=== PATIENT | female | born 1985 | race Caucasian/White ===

== ENCOUNTER → 2016-06-18 | Outpatient (CLI) | payer BC ==
--- NOTE | 2016-06-19 07:49 | US ---
EXAMINATION TYPE: US OB anatomy trans abd DATE OF EXAM: 06/18/2016 4:56 PM COMPARISON: yes in PACS HISTORY: large for date TECHNIQUE: Transabdominal (TA) EXAM MEASUREMENTS: GESTATIONAL AGE / DATING Physician Established: not established Dates by LMP: (18 weeks/ 4 days) EDC: 11/15/2016 Dates by First Scan: (18 weeks/ 3 days) EDC: 11/14/2016 Dates by Current Scan: (18 weeks/ 1 days) EDC: 11/18/2016 SURVEY IUP: Single PLACENTA: Posterior PREVIA: Low Lying SUBHA: 13.9 cm Normal CERVICAL LENGTH (transabdominal: norm > 3.0cm): 4.8 cm BIOMETRY PRESENTATION: Vertex LIE: Longitudinal BPD: 4.1 cm 18 weeks / 3 days HC: 15.1 cm 18 weeks / 1 days AC: 12.3 cm 18 weeks / 0 days FL: 2.7 cm 18 weeks / 1 days ESTIMATED WEIGHT IN GRAMS: 221 grams ESTIMATED WEIGHT IN LBS/OZS: 0 lbs. 8 oz. WEIGHT PERCENTAGE BASED ON ESTABLISHED DATE: 18 % HC/AC: 1.2 FL/AC: 21 HEART RATE: 146 bpm RHYTHM: Normal ANATOMY SEEN (within normal limits): * Lateral Vent (< 1 cm): 0.6 cm * Cisterna Magna (< 1.1 cm) : 0.2 cm * Nuchal Fold (< 0.6 cm) : 0.2 cm * Cerebellum (varies with age): 1.8 Choroid Plexus (bilateral) Midline Falx Cavus Septi Pellucidi Stomach Situs Kidneys (bilateral) Bladder Cord Insert Three Vessel Cord Arms (bilateral) Legs (bilateral) ANATOMY SEEN (does not appear within normal limits): ANATOMY NOT SEEN: Four Chamber Heart Outflow tracts: LVOT/RVOT Longitudinal Spine Transverse Spine Nose / Lips Diaphragm MATERNAL WALL MEASUREMENT: 2 cm from skin to anterior uterine wall (if exam limited due to body habi tus). limited scan visualization limited see above pt scheduled 07/08 at 1500 for recheck call back IMPRESSION: viable IUP, age appropiate
--- NOTE | 2016-07-08 15:56 | US ---
EXAMINATION TYPE: US OB Call Back DATE OF EXAM: 07/08/2016 3:37 PM COMPARISON: on PACS CLINICAL HISTORY: OB Callback. GESTATIONAL AGE / DATING Dates by Initial Survey Scan: (21 weeks/3 days) EDC: 11/15/2016 HEART RATE: 160 bpm RHYTHM: Normal ANATOMY SEEN (second anatomic survey look): Four Chamber Heart: wnl Outflow tracts:? LVOT/RVOT wnl Nose / Lips: wnl Diaphragm : wnl Longitudinal Spine: wnl Transverse Spine: wnl ANATOMY STILL NOT SEEN (requiring an additional callback appt): TECHNOLOGIST IMPRESSION: Anatomy scan now complete Scanned by Nayana Smith IMPRESSION: Anatomy scan now complete and normal.
== END | disposition home or self-care (01) ==
LOC: RADUSWWP 15:50
PROVIDERS: ATTEND Obstetrics & Gynecology
DX: O36.62X0 Maternal care for excessive fetal growth, second trimester, not applicable or unspecified (principal); Z3A.18 18 weeks gestation of pregnancy
CPT/HCPCS: 76811

== ENCOUNTER → 2016-08-03 | Outpatient (CLI) | payer BC ==
[2016-08-03 17:32] LABS: CHCM 33.7; HCT 33.8 % (34.0-46.0); HGB 11.2 gm/dL (11.4-16.0); MCH 30.6 pg (25.0-35.0); MCHC 33.1 g/dL (31.0-37.0); MCV 92.6 fL (80.0-100.0); RBC 3.65 m/uL (3.80-5.40); RDW 12.9 % (11.5-15.5); WBC 10.4 k/uL (3.8-10.6)
== END ==
LOC: LABWHC1 16:16
PROVIDERS: ATTEND Obstetrics & Gynecology
DX: Z34.92 Encounter for supervision of normal pregnancy, unspecified, second trimester (principal); Z3A.00 Weeks of gestation of pregnancy not specified
CPT/HCPCS: 36415; 82950; 85027

== ENCOUNTER 2016-11-12 09:36 | Inpatient (IN) | payer BC ==
--- NOTE | 2016-11-10 12:27 | P.HPOB ---
History of Present Illness H&P Date: 11/10/16 Chief Complaint: Desires repeat and tubal ligation This patient is a pleasant 31-year-old 2 para 1 female estimated date of confinement 11/15/2016 estimated gestational age 39-4/7 weeks who presents to labor and delivery for requested repeat section and also requesting permanent sterilization by tubal ligation. Patient's history is such that she had a previous with her first at another facility in [place] and had a 22 hour labor that was induced at 41-1/2 weeks. She and at that time and gotten to 5 cm and up having a . Patient this initially requested to however cervix continues to be unfavorable and known labor and is now requesting repeat and she is also desires permanent sterilization. Patient's care otherwise has been uncomplicated with the exception of some first trimester nausea and vomiting. Review of Systems Constitutional: Denies chills, Denies fever Ears, nose, mouth and throat: Denies headache, Denies sore throat Cardiovascular: Denies chest pain, Denies shortness of breath Respiratory: Denies cough Gastrointestinal: Reports heartburn Genitourinary: Reports Menstruation: Reports amenorrhea Musculoskeletal: Denies myalgias Integumentary: Denies pruritus, Denies rash Neurological: Denies numbness, Denies weakness Psychiatric: Denies anxiety, Denies depression Endocrine: Denies fatigue, Denies weight change Past Medical History Past Medical History: No Reported History History of Any Multi-Drug Resistant Organisms: None Reported Past Surgical History: Adenoidectomy, Section Past Anesthesia/Blood Transfusion Reactions: No Reported Reaction Past Psychological History: No Psychological Hx Reported Smoking Status: Never smoker Past Alcohol Use History: None Reported Past Drug Use History: None Reported Medications and Allergies Home Medications Medication Instructions Recorded Confirmed Type Pnv,Calcium 72/Iron/Folic Acid 1 tab PO DAILY 11/10/16 11/10/16 History [ Plus Tablet] Allergies Allergy/AdvReac Type Severity Reaction Status Date / Time No Known Allergies Allergy Verified 11/10/16 12:24 Exam - OBG Physical Exam Abdomen: bowel sounds normal, no diffuse tenderness, no bruit present, no guarding noted, no hepatomegaly, no splenomegaly, no mass Vulva: both: normal Vagina: normal moisture, no discharge Cervix: no lesion (Cervix in the office is closed and thick.), no discharge Uterus: enlarged (Fundal height is 40 cm) Adnexa: both: normal Results blood work shows she is A positive, rubella immune, RPR nonreactive, hepatitis B negative, group B strep was negative, Glucola was normal, ultrasounds have been normal. Assessment and Plan (1) Previous delivery affecting Narrative/Plan: This is a pleasant 31-year-old 2 para 1 female 39-4/7 weeks gestation who is admitted to labor and delivery for elective repeat section and also requesting permanent sterilization. Plan is repeat low transverse section and bilateral partial salpingectomy. This patient does understand a tubal ligation is permanent, however there is a failure rate of approximately 20-25 per thousand procedures done. Patient understands surgery itself has risks including risks of infection, bleeding, possible injury bowel, bladder, vessels, and other organs. She also understands the risk of PE and DVT. All the patient's questions are answered and a written consent is obtained. Status: Acute (2) Family planning Status: Acute
[2016-11-12] MEDS ORDERED: CITRIC ACID-SODIUM CITRATE 15 ML CUP PO ONE (10:35)
[2016-11-12] MEDS ORDERED: LACTATED RINGERS 1,000 ML IV SCH (10:35)
[2016-11-12] MEDS ORDERED: LACTATED RINGERS 1,000 ML IV ONE (10:35)
[2016-11-12 10:47] LABS: Basophils % (A) 0 %; CH 26.7; CHCM 31.9; Eosinophils % (A) 0 %; HCT 30.9 % (34.0-46.0); HDW 3.16; HGB 9.9 gm/dL (11.4-16.0); Hypochromasia Slight; Luc # (Auto) 0.22; Luc % (Auto) 2; Lymphocytes # (A) 1.6 k/uL (1.0-4.8); Lymphocytes % (A) 16 %; MCH 26.9 pg (25.0-35.0); MCV 84.1 fL (80.0-100.0); Monocytes # (A) 0.5 k/uL (0-1.0); Monocytes % (A) 6 %; Neutrophils # (A) 7.1 k/uL (1.3-7.7); Neutrophils % (A) 75 %; RBC 3.68 m/uL (3.80-5.40); RDW 13.8 % (11.5-15.5); WBC 9.4 k/uL (3.8-10.6); WBC (Perox) 9.94
[2016-11-12 10:56] VITALS: BMI 34.1
[2016-11-12] MEDS ORDERED: ceFAZolin 2 GM in SODIUM CHLORIDE 0.9% 100 ML IVPB ONE (11:45)
[2016-11-12] MEDS ORDERED: NALBUPHINE 10 MG/ML AMPUL ONE (12:13)
[2016-11-12] MEDS ORDERED: OXYTOCIN 10 UNIT/ML 1 ML VIAL ONE (12:13)
[2016-11-12] MEDS ORDERED: MORPHINE SULFATE (PF) 0.3 MG/0.3 ML SYR ONE (12:13)
[2016-11-12] MEDS ORDERED: SODIUM CHLORIDE 0.9% 100 ML BAG ONE (12:13)
[2016-11-12] MEDS ORDERED: ceFAZolin 1,000 MG VIAL ONE (12:13)
[2016-11-12] MEDS ORDERED: ONDANSETRON 4 MG/2 ML VIAL ONE (12:13)
[2016-11-12] MEDS ORDERED: KETOROLAC 30 MG/ML 1 ML VIAL ONE (12:13)
[2016-11-12] MEDS ORDERED: ONDANSETRON 4 MG/2 ML VIAL IVP PRN ×2 (12:31→13:08)
[2016-11-12] MEDS ORDERED: diphenhydrAMINE 50 MG/ML 1 ML VIAL IVP PRN ×2 (12:31→13:08)
[2016-11-12] MEDS ORDERED: NALOXONE 0.4 MG/ML 1 ML VIAL IV PRN ×2 (12:31→13:08)
[2016-11-12] MEDS ORDERED: MORPHINE SULFATE 4 MG/ML SYRINGE IVP PRN (12:31)
--- NOTE | 2016-11-12 13:07 | P.OP ---
Date of Procedure: 11/12/16 Preoperative Diagnosis: #1: 39-4/7 week intrauterine . #2: Previous section desires repeat. #3: Multi parity desires permanent sterilization. Postoperative Diagnosis: Same Procedure(s) Performed: #1: Repeat low transverse section. #2: Bilateral partial salpingectomy. Implants: Anesthesia: spinal Surgeon: Connor Kim Patient Care Associate #1: Edmundo Dove Estimated Blood Loss (ml): 800 Pathology: other (Placenta and bilateral fallopian tube segments.) Condition: stable Disposition: floor Indications for Procedure: Please see dictated H&P for intimate details of this patient's admission. Brief summary this pleasant 31-year-old 2 para 1 female 39-4/7 weeks gestation who is admitted to labor and delivery for elective repeat section and also requesting permanent sterilization. Patient does understand the surgery and risks including risks of infection, bleeding, possible bowel, bladder, vessels, and other organs. Patient her stands risk of DVT and pulmonary embolism. All the patient's questions are answered and a written consent is obtained. Operative Findings: Patient had a vigorous viable female Apgars 9 and 9 delivery time is 1228 hrs. There was a double nuchal cord. Patient had normal-appearing uterus tubes and ovaries. Description of Procedure: This patient has a Mcleod catheter placed to straight drain. She subsequently taken to the operating room where she sat up and spinal anesthetic is administered without incident. With an adequate level of anesthesia she is abdominal prep and drape. Scalpels then taken the previous Pfannenstiel incision is incised. A second scalpel is taken down the fascia and it is incised as well. Fascial incision extended bilaterally using the Hauser scissors. Fascia is dissected sharply off the rectus muscles. Rectus muscles are the peritoneum was identified and entered sharply. Peritoneal incision extended superior and inferior without difficulty. Bladder blade is then placed. The bladder peritoneum was taken sharply off the lower uterine segment. Scalpels and taken low transverse uterine incision is then made. I enter the uterine cavity bluntly with a hemostat and there is loss of clear fluid. This incision is extended bluntly as well. 's head is then guided through the incision with fundal pressure delivered this 's head. Bulb suction was done at this time. There is a double nuchal cord which is reduced. We then have delivery the anterior and posterior shoulder and rest this infant's body. Is a vigorous viable female Apgars are 9 and 9 delivery time was 1228 hrs. After delivery of the the umbilical cord is doubly clamped and cut and appears to be trivascular. The placenta is then manually extracted intact. This time I placed Nicole clamps on the uterine incision. Uterine incision then closed using 0 Vicryl running locked fashion 2 layers. Excellent hemostasis is noted. There was an area on the left sided incision and had some additional bleeding I put a [id number] again good hemostasis is noted. With this done the bladder peritoneum was then reapproximated using a 3-0 Vicryl. Then turned my attention to the left fallopian tube and proximally 4 cm from its cornual insertion a small window is made to the mesial salpinx using Bovie cautery. Using a 2-0 silk I doubly ligate a piece the tube. A 2 cm segment of tube was excised and handed off to pathology. Cauterization is done of the tubal ends. Excellent hemostasis is noted. With this done a similar technique on the right tube is done with similar results. This completed excess fluid is removed and pelvis. Uterine tubes and incision is inspected and found to be hemostatic. Uterus placed back into the abdomen. Parietal peritoneum was then identified. Final inspection of the uterus and tubes again assures hemostasis. I closed the parietal peritoneum using 0 Vicryl running fashion. Rectus muscles are reapproximated in 0 Vicryl interrupted fashion. Fascia is then closed using 0 PDS. Fascial incision is intact and hemostatic. Subcutaneous tissues and closed using a 3-0 Vicryl. Skin is and closed using leti. All counts correct 3. There are no complications. Infant and mother are taken together birthing suite in satisfactory condition.
[2016-11-12] MEDS ORDERED: Acetaminophen-Codeine 300-30mg TAB PO PRN ×2 (13:08)
[2016-11-12] MEDS ORDERED: ZOLPIDEM 5 MG TAB PO PRN (13:08)
[2016-11-12] MEDS ORDERED: ACETAMINOPHEN TAB 325 MG TAB PO PRN (13:08)
[2016-11-12] MEDS ORDERED: METOCLOPRAMIDE 5 MG/ML 2 ML VIAL IVP PRN (13:08)
[2016-11-12] MEDS ORDERED: LANOLIN CREAM 5 GM TUBE TOPICAL PRN (13:08)
[2016-11-12] MEDS ORDERED: SIMETHICONE 80 MG CHEWABLE PO PRN (13:08)
[2016-11-12] MEDS ORDERED: IBUPROFEN 600 MG TAB PO PRN (13:08)
[2016-11-12] MEDS ORDERED: diphenhydrAMINE 25 MG CAP PO PRN (13:08)
[2016-11-12] MEDS ORDERED: OXYTOCIN 20 UNITS/1000 ML NS 1,000 ML IV SCH (13:15)
[2016-11-12] MEDS: IRON AG/C/B12/CA/SUC.ACID/STOM 1 EACH TAB PO SCH (18:53)
[2016-11-12] MEDS: SENNOSIDES-DOCUSATE SODIUM 1 EACH TAB PO SCH (19:48)
[2016-11-12] MEDS: KETOROLAC 30 MG/ML 1 ML VIAL IVP PRN (19:48)
[2016-11-12] MEDS: LACTATED RINGERS 1,000 ML IV SCH ×2 (19:48→22:55)
[2016-11-13] MEDS: KETOROLAC 30 MG/ML 1 ML VIAL IVP PRN ×3 (04:35→20:43)
--- NOTE | 2016-11-13 06:10 | P.PNOBGPC ---
Subjective - Subjective Patient reports: Reports appetite normal, Reports voiding normally, Reports pain well controlled, Reports ambulating normally : doing well Objective - Vital Signs Latest vital signs: Vital Signs Temp Pulse Resp BP Pulse Ox 11/13/16 04:00 98.8 F 80 16 104/58 11/13/16 00:00 97.4 F L 78 18 117/66 11/12/16 20:00 97.8 F 71 17 117/73 11/12/16 17:31 97 11/12/16 14:59 65 18 113/62 11/12/16 14:29 61 18 108/64 11/12/16 13:59 97.4 F L 58 L 18 104/58 97 11/12/16 13:44 57 L 18 105/67 97 11/12/16 13:29 68 18 97/61 98 11/12/16 13:14 69 18 111/68 97 11/12/16 12:59 98.0 F 76 18 116/62 97 11/12/16 12:31 94 L 11/12/16 09:34 96.8 F L 80 18 127/83 Intake and Output 11/12/16 11/12/16 11/13/16 14:59 22:59 06:59 Intake Total 200 420 Output Total 800 650 300 Balance -800 -450 120 Intake: Oral 200 420 Output: Urine 650 300 Estimated Blood Loss 800 Other: # Voids 1 Weight 90.265 kg Patient Weight 11/13/16 06:59 Weight 90.265 kg - Exam Lungs: bilateral: normal Chest: Normal S1, Normal S2 Extremities: Present: normal Abdomen: Present: normal appearance, soft. Absent: distention, tenderness Incision: Present: normal, dry, intact Uterus: Present: normal, firm - Labs Labs: Abnormal Lab Results - Last 24 Hours (Table) 11/12/16 Range/Units 10:25 RBC 3.68 L (3.80-5.40) m/uL Hgb 9.9 L (11.4-16.0) gm/dL Hct 30.9 L (34.0-46.0) % Assessment and Plan (1) Previous delivery affecting Narrative/Plan: Postoperative day #1. Patient is resting without complaints. Vital signs are stable she is afebrile. Uterus is firm nontender her incision is intact and dry. CBC is pending at this time. I did start her on chromogen yesterday because her preoperative hemoglobin was 9.9. My impression is this is a normal postoperative course. Plan today is to advance to regular diet, check a CBC, encourage ambulation. Current Visit: Yes Status: Acute Code(s): O34.219 - MATERNAL CARE FOR UNSP TYPE SCAR FROM PREVIOUS DEL SNOMED Code(s): 025996150 (2) Family planning Current Visit: Yes Status: Acute Code(s): Z30.09 - ENCOUNTER FOR OTH GENERAL CNSL AND ADVICE ON CONTRACEPTION SNOMED Code(s): 46483652
[2016-11-13 06:57] LABS: Basophils % (A) 0 %; CH 26.6; CHCM 31.3; Eosinophils # (A) 0.1 k/uL (0-0.7); Eosinophils % (A) 1 %; HCT 28.1 % (34.0-46.0); HDW 3.11; HGB 8.8 gm/dL (11.4-16.0); Hypochromasia Moderate; Luc # (Auto) 0.14; Luc % (Auto) 2; Lymphocytes # (A) 1.1 k/uL (1.0-4.8); Lymphocytes % (A) 12 %; MCH 26.7 pg (25.0-35.0); MCHC 31.3 g/dL (31.0-37.0); MCV 85.3 fL (80.0-100.0); Mean Platelet Volume 10.2; Monocytes # (A) 0.5 k/uL (0-1.0); Monocytes % (A) 5 %; Neutrophils # (A) 6.8 k/uL (1.3-7.7); Neutrophils % (A) 79 %; RDW 13.9 % (11.5-15.5); WBC 8.6 k/uL (3.8-10.6); WBC (Perox) 8.94
[2016-11-13] MEDS: LACTATED RINGERS 1,000 ML IV SCH (07:33)
[2016-11-13] MEDS: SENNOSIDES-DOCUSATE SODIUM 1 EACH TAB PO SCH ×2 (07:48→20:03)
--- NOTE | 2016-11-13 10:26 | P.PN ---
Progress Note - Text 0745 Anesthesia POD 1. Patient is status post section under final anesthesia with intra-thecal preservative free morphine the 300 g. Mild pruritus, good post-op analgesia, and O headache or other complications.
[2016-11-13] MEDS: IRON AG/C/B12/CA/SUC.ACID/STOM 1 EACH TAB PO SCH (19:43)
[2016-11-14 00:55] VITALS: RESP 16
[2016-11-14] MEDS: KETOROLAC 30 MG/ML 1 ML VIAL IVP PRN (07:39)
[2016-11-14 08:35] VITALS: BP 126/72; PULSE 82; TEMP 98.2
--- NOTE | 2016-11-14 12:20 | P.DS ---
Providers Date of admission: 11/12/16 09:36 Expected date of discharge: 11/14/16 Attending physician: Connor Kim Primary care physician: Stated None Hospital Course: Emely is doing very well postop day 2. She is ambulating, voiding, tolerating her diet. She is passing flatus. Vital signs are stable and afebrile. Heart regular, lungs clear, extremities without pain. Assessment postop day 2 from a section. Plan follow up with Dr. Kim in 1 week. Prescriptions for pain medication and provided provided and all questions have been answered and discharge instructions reviewed. Patient Condition at Discharge: Good Plan - Discharge Summary New Discharge Prescriptions: New Acetaminophen-Codeine 300-30mg [Tylenol w/codeine #3] 1 - 2 each PO Q4HR PRN #40 tab PRN Reason: Mild Pain Ibuprofen [Motrin] 600 mg PO Q6HR PRN #40 tab PRN Reason: Mild Pain Or Fever >= 100.5 Iron Ag/C/B12/Ca/Suc.acid/Stom [Chromagen LF] 1 each PO DAILY #30 tab Discharge Medication List Acetaminophen-Codeine 300-30mg [Tylenol w/codeine #3] 1 - 2 each PO Q4HR PRN # 40 tab 11/12/16 [Rx] Ibuprofen [Motrin] 600 mg PO Q6HR PRN #40 tab 11/12/16 [Rx] Iron Ag/C/B12/Ca/Suc.acid/Stom [Chromagen LF] 1 each PO DAILY #30 tab 11/12/16 [ Rx] Follow up Appointment(s)/Referral(s): Connor Kim MD [STAFF PHYSICIAN] - 11/24/16 1:30 pm (Patient also has a appointment on December 24 at 9:30 AM.) Patient Instructions/Handouts: Iron Deficiency Anemia (DC), (DC) Activity/Diet/Wound Care/Special Instructions: No strenuous activities or heavy lifting for 6 weeks. No intercourse or anything per vagina for 6 weeks. Please call if any fever, chills, excessive vaginal bleeding, and/or abdominal pain. Discharge Disposition: HOME SELF-CARE
== END 2016-11-14 14:00 | disposition home or self-care (01) | DRG 766 ==
LOC: 4FBP 09:36
PROVIDERS: ADMIT Obstetrics & Gynecology; ATTEND Obstetrics & Gynecology
PROC: 10D00Z1 Extraction of Products of Conception, Low, Open Approach (ICD-10-PCS; principal; 2016-11-12 12:00)
PROC: 0UB70ZZ Excision of Bilateral Fallopian Tubes, Open Approach (ICD-10-PCS; principal; 2016-11-12 12:00)
DX: O34.211 Maternal care for low transverse scar from previous cesarean delivery (principal); O69.81X0 Labor and delivery complicated by cord around neck, without compression, not applicable or unspecified; Z37.0 Single live birth; Z30.2 Encounter for sterilization; Z3A.39 39 weeks gestation of pregnancy
CPT/HCPCS: 85025; 86850; 86900; 86901; 88302; 88307

== ENCOUNTER 2022-12-14 05:46 | Day surgery (SDC) | payer BC ==
--- NOTE | 2022-12-13 08:52 | P.HPOB ---
History of Present Illness H&P Date: 12/13/22 Chief Complaint: Menorrhagia This patient is a pleasant 37-year-old 2 para 2 female who presented to my office with complaints of heavy and long menstrual cycles. Patient states that her menses are regular but sometimes they're heavy enough that she is unable to go to advance her activities. Patient had a pelvic ultrasound which was normal. I did discussed options with her for treatment and she is requested to proceed with endometrial ablation for treatment. She has had a tubal ligation is done having children. Review of Systems Genitourinary: Reports as per HPI, Reports menorrhagia Past Medical History Past Medical History: No Reported History, Seizure Disorder Additional Past Medical History / Comment(s): Seizure in 2018/worked up by neurology. History of Any Multi-Drug Resistant Organisms: None Reported Past Surgical History: Adenoidectomy, Section Past Anesthesia/Blood Transfusion Reactions: No Reported Reaction, Postoperative Nausea & Vomiting (PONV) Additional Past Anesthesia/Blood Transfusion Reaction / Comment(s): Pt has never received blood. Past Psychological History: No Psychological Hx Reported Smoking Status: Never smoker Past Alcohol Use History: None Reported Past Drug Use History: None Reported - Past Family History Father Family Medical History: Seizure Disorder Mother Family Medical History: No Reported History Medications and Allergies Home Medications Medication Instructions Recorded Confirmed Type L.acidoph,Paracasei, B.lactis 1 cap PO QAM 12/10/22 12/10/22 History [Probiotic] Allergies Allergy/AdvReac Type Severity Reaction Status Date / Time No Known Allergies Allergy Verified 12/10/22 08:28 Exam - OBG Physical Exam Abdomen: bowel sounds normal, no diffuse tenderness, no bruit present, no guarding noted, no hepatomegaly, no splenomegaly, no mass Vulva: both: normal Vagina: normal moisture, no discharge Cervix: no lesion, no discharge Uterus: normal size, normal contour Results Transvaginal ultrasound on October 28 shows a normal size uterus with endometrium of 14 mm. Adnexa are normal. Assessment and Plan Assessment: This is a pleasant 37-year-old 2 para 2 female with long-standing menorrhagia and negative evaluation. Patient is requesting endometrial ablation for treatment. Plan is hysteroscopy, D&C, and NovaSure endometrial ablation. Patient I have discussed the surgery and risks and risks of infection, bleeding, possible uterine perforation, and/or thermal injury. All the patient's questions are answered and a written consent is obtained. (1) Menorrhagia Status: Chronic Code(s): N92.0 - EXCESSIVE AND FREQUENT MENSTRUATION WITH REGULAR CYCLE SNOMED Code(s): 840743984
[~2022-12-14 05:46] MED LIST: Pre Op ABX Message 1 EACH MISC MISCELLANE ONE
[2022-12-14] MEDS ORDERED: MIDAZOLAM 2 MG/2 ML VIAL IV PRN (06:07)
[2022-12-14] MEDS ORDERED: SCOPOLAMINE 1 MG/72 HR PATCH TRANSDERM ONE (06:07)
[2022-12-14] MEDS ORDERED: DEXAMETHASONE SOD PHOSPHATE 4 MG/ML 1 ML VIAL IV ONE (06:07)
[2022-12-14] MEDS ORDERED: LACTATED RINGERS 1,000 ML IV SCH (06:07)
[2022-12-14] MEDS ORDERED: ONDANSETRON 4 MG/2 ML VIAL IVP ONE (06:07)
[2022-12-14] MEDS ORDERED: LIDOCAINE 2% INJ 20 MG/ML (2 ML VIAL) ONE (06:41)
[2022-12-14] MEDS ORDERED: fentaNYL (PF) 50 MCG/ML 2 ML AMP ONE (06:41)
[2022-12-14] MEDS ORDERED: KETOROLAC 15 MG/ML 1 ML VIAL ONE (06:41)
[2022-12-14] MEDS ORDERED: MIDAZOLAM 2 MG/2 ML VIAL ONE (06:41)
[2022-12-14] MEDS ORDERED: PROPOFOL 10 MG/ML 20 ML VIAL IV ONE (06:41)
[2022-12-14] MEDS ORDERED: HYDROmorphone 0.5 MG/0.5 ML SYRINGE IVP PRN (07:00)
--- NOTE | 2022-12-14 07:19 | P.OP ---
Date of Procedure: 12/14/22 Preoperative Diagnosis: Menorrhagia Postoperative Diagnosis: Same Procedure(s) Performed: #1: Hysteroscopy. #2: Dilation and curettage. #3: NovaSure endometrial ablation Anesthesia: other (LMA) Surgeon: Connor Kim Estimated Blood Loss (ml): 10 Urine output (ml): 10 Pathology: other (Uterine curettings) Condition: stable Disposition: PACU Indications for Procedure: Please see dictated H&P for intimate details of this patient's admission. Brief summary this pleasant 37-year-old female with long-standing menorrhagia requesting NovaSure endometrial ablation for treatment. Patient understands this surgery and risks and risks of infection, bleeding, possible uterine perforation, and/or thermal injury. All the patient's questions are answered and a written consent is obtained. Operative Findings: This patient had a normal-appearing endometrial cavity Description of Procedure: This patient is taken to the operating room where she is laid in the supine position. She subsequently undergoes general anesthesia without incident. After the appropriate timeout, patient has a perineal vaginal prep and drape. Examination under anesthesia shows a slightly retroverted uterus of normal size. The bladder is drained for 10 mL of clear urine. Weighted speculum was placed in the posterior vagina. The Allis clamp was placed on the anterior lip of the cervix. A sound the uterus to 8.5 cm. Gentle dilation of the endocervix is done to allow the hysteroscope easily and the uterine cavity. Hysteroscopy is performed using saline solution. Uterine cavity appears to be normal without evidence of polyps or fibroids. It is measured a length of 6.0 cm. The hysteroscope was then removed. Cervix is dilated gently more to allow small curette easily into the uterine cavity. A gentle but thorough 4 quadrant curettage is then done. With this completed the NovaSure device is then opened. It is set at a length of 6.0 cm it opens up to a width of 4.7 cm. After passing the cavity integrity test, it is enabled at 155 W setting for 42 seconds. NovaSure device is then removed it appears to be intact. Hysteroscopy is performed again and the uterine cavity appears to be ablated up to the endocervix. Excellent results were noted. This completed the procedure is ended. The Allis clamp and weighted speculum were removed. All counts are correct 3. There are no complications. Patient's weight from anesthesia and taken recovery room in satisfactory condition
[2022-12-14 07:21] VITALS: TEMP 97
[2022-12-14 08:59] VITALS: BP 109/70
[2022-12-14 09:01] VITALS: PULSE 55; RESP 20
== END 2022-12-14 09:09 | disposition home or self-care (01) ==
LOC: OR 05:46
PROVIDERS: ATTEND Obstetrics & Gynecology
DX: N85.8 Other specified noninflammatory disorders of uterus (principal); N85.4 Malposition of uterus; G40.909 Epilepsy, unspecified, not intractable, without status epilepticus; Z79.899 Other long term (current) drug therapy
CPT/HCPCS: 58563; J2250; J1100; J2405; J3010; J1885; J2704; J2001; 88305